=== PATIENT | male | born 1970 | race Caucasian/White ===

== ENCOUNTER → 2021-02-20 00:04 | Outpatient (CLI) | payer OTHER, SELFPAY ==
[2021-02-20 19:57] LABS: SARS-CoV-2 RNA PCR Negative
== END ==
PROVIDERS: PCP Nurse Practitioner Family; Visit Provider Internal Medicine Gastroenterology
DX: Z01.812 Encounter for preprocedural laboratory examination (principal); Z20.822 Contact with and (suspected) exposure to COVID-19
CPT/HCPCS: C9803; U0003; U0005

== ENCOUNTER 2021-02-23 00:24 | Day surgery (SDC) | payer OTHER, SELFPAY ==
[2021-02-23 06:27] VITALS: BP 166/93; PULSE 71; RESP 18; TEMP 36.3; O2SAT 99
[2021-02-23] MEDS: LACTATED RINGERS 1,000 ML 150 ML IV CONT (06:34)
--- NOTE | 2021-02-23 07:23 | WPDANESEPPF ---
Anes - Initial Pre Proc Eval Procedure: Operation Date: 02/23/21 07:30 Proposed Procedures p Screening Colonoscopy - Randy Lim MD Date/Time: 02/23/21 07:23 Surgeon: Randy Lim MD Pre Op Diagnosis: neoplasm screening Patient Data Age: 50 Gender: M Height: 1.78 m Weight: 93.4 kg Last Vital Signs Temp 97.3 F L 02/23/21 06:27 Pulse 71 02/23/21 06:27 Resp 18 02/23/21 06:27 BP 166/93 H 02/23/21 06:27 Pulse Ox 99 02/23/21 06:27 Allergies Allergy/AdvReac Type Severity Reaction Status Date / Time No Known Allergies Allergy Verified 02/23/21 06:25 Home Medications Medication Instructions Recorded Confirmed Type lisinopril 20 mg tablet 20 mg PO DAILY #30 tablet 11/20/20 02/23/21 Rx Patient hx anesthesia problems: none Family hx anesthesia problems: none Results Review: All pre-operative results and documents have been reviewed as part of the pre-operative evaluation. [facility] Past Medical History Medical History (Updated 11/23/20 @ 08:31 by Komal Nicholas) Arthritis Chest pain Chronic back pain Chronic cough Encounter to establish care Hx of cardiac murmur Hypersomnia Hypertension IBS (irritable bowel syndrome) Irritable bowel syndrome with diarrhea Spinal cord stimulator status Tobacco abuse Surgical History Surgical History (Updated 11/20/20 @ 15:01 by Mark Emmanuel CMA) H/O knee surgery x3 History of back surgery x3 History of vasectomy Hx of hand surgery hx broken hand Family History Family History (Updated 11/20/20 @ 14:53 by Mark Emmanuel CMA) Father Alcoholism Hypertension Depression Anxiety Mother Depression Anxiety Sibling Alcoholism Asthma Hypertension Depression Anxiety Grandparent Alcoholism Asthma Hypertension Depression Anxiety Heart disease Cerebrovascular accident Grandparent Alcoholism Hypertension Heart disease Depression Anxiety Other Diabetes mellitus Family history of arthritis Family history of cardiovascular disease Social History Social History (Updated 11/20/20 @ 15:02 by Mark Emmanuel CMA) Smoking packs per day: 1 Smoking cigarettes per day: 20.0 Years smoked: 32 Smoking pack-years: 32.00 Smoking status: Current every day smoker Tobacco type: cigarettes Alcohol intake: current Drinks per week: 70 Alcohol use details: states he drinks about 10 beers a day Substance use: current Substance use type: does not use Living arrangements: with family Spiritual care concerns: No Anes - Eval Final PreProcedure Day of Procedure 02/23/21 07:23 Patient weight: overweight Heart: regular rate and rhythm Lungs: clear to auscultation Airway: Mallampati scale class II Neurological: alert and oriented Last oral intake: >/= 8 hours ASA classification: II Emergent: no Anesthetic plan: proceed Anesthesia type and monitoring: general GIVS and standard monitoring Results Review: All pre-operative results and documents have been reviewed as part of the pre-operative evaluation. Informed Consent: The patient's anesthetic plan and its attendant risks and benefits were discussed with the patient/family/POA. Questions were solicited and answers provided to the satisfaction of the patient/family/POA.
--- NOTE | 2021-02-23 07:29 | PM.HPGS ---
History of Present Illness History of Present Illness Consent: Risks, benefits, and alternatives have been discussed and questions answered. Patient agrees to proceed with procedure. Chief complaint: neoplasm screening Narrative: Mushtaq Steele is a 50 year old male here for first screening colonoscopy Review of Systems Constitutional: Constitutional: Denies headache(s) and Denies weakness Eyes: Eyes: Denies blurry vision ENT: Reports Normal hearing present, Denies headache(s) and Denies neck pain Cardiovascular: Cardiovascular: Denies chest pain and Denies dyspnea Respiratory: Respiratory: Denies dyspnea Gastrointestinal: Gastrointestinal: Reports no additional gastrointestinal complaints Genitourinary: Genitourinary: Denies dysuria Musculoskeletal: Musculoskeletal: Denies neck pain Integumentary/Breasts: Skin/Breast: Denies dry skin Neurologic: Reports Normal hearing present, Denies headache(s) and Denies weakness Psychiatric: Psychiatric: Denies anxiety Endocrine: Endocrine: Denies change in body appearance Hematologic/Lymphatic: Hematologic/Lymphatic: Denies easy bleeding Allergic/Immunologic: Allergic/Immunologic: Denies urticaria PMFSH Past Medical History Medical History (Updated 11/23/20 @ 08:31 by Komal Nicholas) Arthritis Chest pain Chronic back pain Chronic cough Encounter to establish care Hx of cardiac murmur Hypersomnia Hypertension IBS (irritable bowel syndrome) Irritable bowel syndrome with diarrhea Spinal cord stimulator status Tobacco abuse Surgical History Surgical History (Updated 11/20/20 @ 15:01 by Mark Emmanuel [facility]) H/O knee surgery x3 History of back surgery x3 History of vasectomy Hx of hand surgery hx broken hand Family History Family History (Updated 11/20/20 @ 14:53 by Mark Emmanuel [facility]) Father Alcoholism Hypertension Depression Anxiety Mother Depression Anxiety Sibling Alcoholism Asthma Hypertension Depression Anxiety Grandparent Alcoholism Asthma Hypertension Depression Anxiety Heart disease Cerebrovascular accident Grandparent Alcoholism Hypertension Heart disease Depression Anxiety Other Diabetes mellitus Family history of arthritis Family history of cardiovascular disease Social History Social History (Updated 11/20/20 @ 15:02 by Mark Emmanuel [facility]) Smoking packs per day: 1 Smoking cigarettes per day: 20.0 Years smoked: 32 Smoking pack-years: 32.00 Smoking status: Current every day smoker Tobacco type: cigarettes Alcohol intake: current Drinks per week: 70 Alcohol use details: states he drinks about 10 beers a day Substance use: current Substance use type: does not use Living arrangements: with family Spiritual care concerns: No Meds Home Medications and Allergies Home Medications Medication Instructions Recorded Confirmed Type lisinopril 20 mg tablet 20 mg PO DAILY #30 tablet 11/20/20 02/23/21 Rx Allergies Allergy/AdvReac Type Severity Reaction Status Date / Time No Known Allergies Allergy Verified 02/23/21 06:25 Vital Signs Vital Signs - 24 hr 02/23/21 06:27 Temperature 97.3 F L Pulse Rate 71 Respiratory Rate 18 Blood Pressure 166/93 H Pulse Oximetry 99 Exam Const: General: comfortable and no acute distress HENMT: General nose exam: Normal nares present Eyes: General: appearance normal, both eyes and all related structures Neck: Neck: no JVD Resp: Auscultation: clear to auscultation bilaterally Cardio: Rate: regular rate Rhythm: regular rhythm GI: Inspection: non-distended GI Palp: Yes Soft to palpation Skin: General skin exam: normal color Neuro: General: gait normal Speech: normal speech Extrem: General: normal to inspection Psych: Mental Status: mental status grossly normal Assessment and Plan Assessment and plan (1) Colon cancer screening: Code(s): Z12.11 - Encounter for scre
[2021-02-23 07:48] VITALS: BP 124/84; PULSE 66; RESP 17; O2SAT 97
[2021-02-23 07:58] VITALS: BP 128/87; PULSE 63; RESP 17; O2SAT 100
[2021-02-23 08:08] VITALS: BP 136/91; PULSE 60; RESP 15; O2SAT 100
== END 2021-02-23 08:23 | disposition home or self-care (01) ==
PROVIDERS: PCP Nurse Practitioner Family; Visit Provider Internal Medicine Gastroenterology
PROC: 0DJD8ZZ Inspection of Lower Intestinal Tract, Via Natural or Artificial Opening Endoscopic (ICD-10-PCS; CPT 45378; principal; 2021-02-23 07:30)
DX: Z12.11 Encounter for screening for malignant neoplasm of colon (principal); K57.30 Diverticulosis of large intestine without perforation or abscess without bleeding; K64.8 Other hemorrhoids; I10 Essential (primary) hypertension; K58.9 Irritable bowel syndrome, unspecified; F17.210 Nicotine dependence, cigarettes, uncomplicated
CPT/HCPCS: 45378; C9803; J2704; J7120; U0003; U0005

== ENCOUNTER → 2021-03-11 15:12 | Outpatient (CLI) | payer OTHER, SELFPAY ==
--- NOTE | ~2021-03-11 | XR_ITS ---
XR hip BI 2V w AP pelvis 03/11/2021 15:47 Indication: Hip pain Procedure: AP pelvis and 2 views each hip Comparison: No prior studies for comparison. Findings: There is mild symmetric osteoarthritis of the hips. Pelvic rings are intact. Sacral foramen are symmetric. There is a battery pack overlying the right ilium which is partially obscured. No sof t tissue abnormality. Impression: 1: Mild symmetric osteoarthritis of the hips. Reviewed, dictated and finalized at location A. [facility] Impression: 1: Mild symmetric osteoarthritis of the hips.
--- NOTE | ~2021-03-11 | XR_ITS ---
XR knee RT 2V 03/11/2021 15:47 Indication: Right knee pain Procedure: 4 views right knee Comparison: 07/27/2006 Findings: There are surgical changes consistent with prior ACL reconstruction. No acute fracture or t raumatic malalignment. No significant joint space narrowing. No joint effusion. There are vascular ca lcifications. There is normal mineralization. Impression: 1: No acute bone or joint abnormality. Reviewed, dictated and finalized at location A. [facility] Impression: 1: No acute bone or joint abnormality.
--- NOTE | ~2021-03-11 | XR_ITS ---
XR knee LT 2V 03/11/2021 15:47 Indication: Left knee pain Procedure: 4 views left knee Comparison: 11/22/2006 Findings: There are postsurgical changes consistent with ACL reconstruction with interference screws and bone edvin. There are metallic fragments lateral to the distal tibia, unchanged from prior stud y. No acute fracture or traumatic malalignment. No significant alteration of alignment. No significan t joint effusion. Impression: 1: No acute bone or joint abnormality. Reviewed, dictated and finalized at location A. [employer] Impression: 1: No acute bone or joint abnormality.
== END ==
PROVIDERS: PCP Family Medicine; Visit Provider Nurse Practitioner Family
DX: M25.561 Pain in right knee (principal); M25.562 Pain in left knee; M16.0 Bilateral primary osteoarthritis of hip
CPT/HCPCS: 73521; 73560

== ENCOUNTER 2022-09-07 15:55 | Outpatient (CLI) | payer OTHER, SELFPAY ==
--- NOTE | 2022-09-07 11:00 | NEURO_ITS ---
Impression: # Complains of numbness in right hand in certain positions. Having right shoulder surgery. # Subtle evolving right Carpal Tunnel Syndrome. # No ulnar neuropathy. # Normal needle/EMG exam of proximal and distal muscles. # Clinical correlation recommended. Nerve Conduction Studies Anti Sensory Summary Table Stim Site NR Peak (ms) P-T Amp (?V) Site1 Site2 Delta-P (ms) Dist (cm) Rony (m/s) Right Median Anti Sensory (2-3nd Digit) Wrist 3.3 40.8 Wrist 2-3nd Digit 3.3 14.0 42 Wrist 3.1 40.8 Wrist 2-3nd Digit 3.3 14.0 42 Right Radial Anti Sensory (Base 1st Digit) Wrist 2.1 28.3 Wrist Base 1st Digit 2.1 0.0 Right Ulnar Anti Sensory (5th Digit) Wrist 2.7 42.7 Wrist 5th Digit 2.7 14.0 52 Motor Summary Table Stim Site NR Onset (ms) O-P Amp (mV) Site1 Site2 Delta-0 (ms) Dist (cm) Rony (m/s) Right Median Motor (Abd Poll Brev) Wrist 3.7 3.5 Elbow Wrist 5.6 30.0 54 Elbow 9.3 4.0 Right Ulnar Motor (Abd Dig Minimi) Wrist 2.5 8.8 A Elbow Wrist 5.8 30.0 52 A Elbow 8.3 7.8 F Wave Studies NR F-Lat (ms) L-R F-Lat (ms) Right Median (Mrkrs) (Abd Poll Brev) 29.71 Right Ulnar (Mrkrs) (Abd Dig Min) 30.20 EMG Side Muscle Nerve Root Ins Act Fibs Amp Dur Recrt Comment Right 1stDorInt Ulnar C8-T1 Nml Nml Nml Nml Nml Right Ext Indicis Radial (Post Int) C7-8 Nml Nml Nml Nml Nml Right Ext Digitorum Radial (Post Int) C7-8 Nml Nml Nml Nml Nml Right BrachioRad Radial C5-6 Nml Nml Nml Nml Nml Right PronatorTeres Median C6-7 Nml Nml Nml Nml Nml Right Abd Poll Brev Median C8-T1 Nml Nml Nml Nml Nml Right ABD Dig Min Ulnar C8-T1 Nml Nml Nml Nml Nml Right Biceps Musculocut C5-6 Nml Nml Nml Nml Nml Right Triceps Radial C6-7-8 Nml Nml Nml Nml Nml Right Deltoid Axillary C5-6 Nml Nml Nml Nml Nml MTDD
--- NOTE | 2022-09-08 07:17 | PCNEURO ---
Paper documentation exists on this patient due to [employer] downtime on 09/07/22 from to 00:30-19:30 .
== END 2022-09-07 15:56 | disposition home or self-care (01) ==
LOC: ANHNEURO 15:56
PROVIDERS: PCP Nurse Practitioner Family; Visit Provider Orthopaedic Surgery
DX: M79.641 Pain in right hand (principal); G56.01 Carpal tunnel syndrome, right upper limb
CPT/HCPCS: 95886; 95909

== ENCOUNTER 2022-09-19 11:28 | Outpatient (CLI) | payer OTHER, SELFPAY ==
--- NOTE | 2022-09-19 11:45 | ECG_ITS ---
Measurements Intervals [place] Rate: 68 P: 61 OK: 134 QRS: 54 QRSD: 97 T: 8 QT: 395 QTc: 423 Interpretive Statements SINUS RHYTHM NO PREVIOUS ECG AVAILABLE FOR COMPARISON Electronically Signed On 09-20-2022 13:04:07 CDT by Mary Moreland M.D.
== END 2022-09-19 11:29 | disposition home or self-care (01) ==
PROVIDERS: PCP Nurse Practitioner Family; Visit Provider Orthopaedic Surgery
DX: Z72.0 Tobacco use (principal); Z01.818 Encounter for other preprocedural examination
CPT/HCPCS: 93005

== ENCOUNTER 2022-09-21 01:49 | Day surgery (SDC) | payer OTHER, SELFPAY ==
--- NOTE | 2022-09-15 14:32 | PM.IMHP ---
H&P: HPI History of Present Illness Date/Time: 09/15/22 14:32 Chief Complaint: The patient is a 52-year-old male who sees Dr. Fernandes regarding his right shoulder. The patient has a chronic ongoing history of pain localized to the right shoulder particularly with overhead motion or trying to do anything heavy repetitive. His aching and pain that radiates into the upper arm worse with activity some early by rest. Despite cortisone therapy and anti-inflammatories if symptoms continue. The patient also has a mass over the deltoid region MRI scan evaluation revealed multiple findings, patient has impingement 2 to AC joint hypertrophy, he has AC joint arthrosis partial thickness supraspinatus articular undersurface tear at the insertion, partial intrasubstance tear of the subscapularis tendon, possible anterior partial infraspinatus tendon tear at the musculotendinous junction as well. 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 At this point the patient has failed conservative measures including cortisone therapy and anti-inflammatories for his right shoulder rotator cuff tendinitis and impingement type pain he has discussed further treatment options he would like to proceed with surgical intervention. He would also like the lipoma mass excision done at the same time Dr. Fernandes has agreed to proceed after discussing risks benefits limitations alternatives to surgery in great detail with the patient. Review of Systems Review of Systems: Ten point review of systems otherwise negative PMFSH Past Medical History Medical History Arthritis Bilateral hip pain Bilateral knee pain Bilateral shoulder pain BMI 29.0-29.9,adult BMI 30.0-30.9,adult Chest pain Chronic back pain Chronic cough Chronic right shoulder pain Encounter to establish care Hx of cardiac murmur Hypersomnia Hypertension IBS (irritable bowel syndrome) Irritable bowel syndrome with diarrhea Kidney stones Mixed hyperlipidemia Spinal cord stimulator status Tobacco abuse Surgical History Surgical History H/O knee surgery x3 History of back surgery x3 History of vasectomy Hx of hand surgery hx broken hand Family History Family History Father Alcoholism Hypertension Depression Anxiety Mother Depression Anxiety Sibling Alcoholism Asthma Hypertension Depression Anxiety Grandparent Alcoholism Asthma Hypertension Depression Anxiety Heart disease Cerebrovascular accident Grandparent Alcoholism Hypertension Heart disease Depression Anxiety Other Diabetes mellitus Family history of arthritis Family history of cardiovascular disease Social History Social History Smoking packs per day: 1 Smoking cigarettes per day: 20.0 Years smoked: 32 Smoking pack-years: 32.00 Smoking status: Current every day smoker Tobacco type: cigarettes Alcohol intake: current Drinks per week: 70 Alcohol use details: states he drinks about 10 beers a day Substance use: never Substance use type: does not use Living arrangements: with family Spiritual care concerns: No Meds Home Medications and Allergies Home Medications Medication Instructions Recorded Confirmed Type lisinopril 20 mg tablet 10 mg PO DAILY #15 tabs 03/05/21 09/16/21 Rx meloxicam 15 mg tablet 15 mg PO DAILY #30 tabs 03/05/21 09/16/21 Rx metoprolol succinate 25 mg 12.5 mg PO DAILY #15 tabs 03/05/21 09/16/21 Rx tablet,extended release 24 hr tamsulosin 0.4 mg capsule 0.4 mg PO QHS PRN pain #30 caps 09/16/21 09/16/21 Rx Allergies Allergy/AdvReac Type Severity Reaction Status Date / Time No Known All
[2022-09-16 13:58] VITALS: BMI 28.5
--- NOTE | 2022-09-16 14:05 | PC.NURSE ---
Report to the Outpatient Waiting Room, entrance under the green pavilion located off [facility], at time 0800_ on date _09/21/22_. Planned Procedure Time: _1000_. Time changes happen often and if your time is changed the preop area will call you the afternoon before. - You and your visitor will be asked to self-screen and do not enter if you have any COVID symptoms. - A mask is optional within the hospital at this time. Patients may have clear liquids (water, carbonated beverages, clear teas, apple juice) until 3 hours prior to surgery with a maximum of 20 ounces. - No food from midnight until time of surgery - Infants may have breast milk until 4 hours before surgery, formula 6 hours prior to surgery. - Children will be allowed to drink immediately following surgery. If applicable, please bring a bottle or sippy cup to assist with drinking. Juice, water, soda, and popsicles are readily available. For infants on formula, please bring formula the day of surgery. Pacifiers are allowed. Take the following medications with a SIP of water the morning of surgery: NONE DO NOT STOP ANY OF YOUR OTHER PRESCRIPTION MEDICATIONS PRIOR TO SURGERY ?EXCEPT THE FOLLOWING Medications to discontinue per physician MELOXICAM INSTRUCTIONS PER DR. HONEYCUTT Date to take last dose Please no make-up, nail dutch, hairspray, perfume, deodorant, or body powder the day of surgery. No jewelry (including any body piercings) or valuables the day of surgery, leave them at home. Please take a shower or bath the night before, or the morning of, surgery with an antibacterial soap. Wear comfortable, loose fitting clothing. Children are encouraged to wear pajamas. - Jewelry must be removed prior to entering the operating room. Rings and piercings that are not removed may be cut off. - The hospital will not accept responsibility for valuables. - Please leave all valuables, including medications, at home the day of surgery. If you are going home after surgery, a licensed locomotive driver must drive you home. - NO public transportation without another adult if you receive anesthesia. - We recommend that an adult stay with you for 24 hours following discharge. - We also recommend that you do not drive, make important decision, drink alcoholic beverages, or take any drugs that were not prescribed by your health care provider for at least 24 hours after your discharge time. For Pediatric surgeries, we recommend two adults accompany the child home. Follow any additional instructions given to you from your surgeon. If you or anyone in your household have experienced Covid symptoms in the past week, please notify your surgeon or the nurse liaison at the phone number below for possible testing. Telephone instructions given to _PATIENT_and asked if any additional questions and then verbalized understanding. Patient advised to call surgeon office or pre surgery nurse liaison [phone] if any additional questions.
[2022-09-21] VITALS (7 sets, daily range): BP systolic 129–165; BP diastolic 73–95; PULSE 61–82; RESP 16–20; TEMP 36.3–36.9; O2SAT 98–100
[2022-09-21] MEDS: LACTATED RINGERS 1,000 ML 30 ML IV CONT ×2 (08:29→11:53)
[2022-09-21] MEDS: ACETAMINOPHEN 500 MG TABLET 1000 MG PO (08:30)
[2022-09-21] MEDS: KETOROLAC 15 MG/ML VIAL (*BKC) IV PUSH (08:30)
--- NOTE | 2022-09-21 09:08 | WPDANESEPPF ---
Anes - Initial Pre Proc Eval Procedure: Operation Date: 09/21/22 10:00 Proposed Procedures p Right Shoulder Arthroscopy, Debridement of Rotator Cuff, Distal Clavicle Excision of Mass Right Shoulder, Proceed as Indicated - Ulises Fernandes MD Date/Time: 09/21/22 09:08 Surgeon: Ulises Fernandes MD Pre Op Diagnosis: chronic impingement, acl orthosis, mass rt shoulde Patient Data Age: 52 Gender: M Height: 1.8 m Weight: 90 kg Last Vital Signs Temp 36.9 C 09/21/22 08:16 Pulse 62 09/21/22 08:16 Resp 18 09/21/22 08:16 BP 145/95 H 09/21/22 08:16 Pulse Ox 99 09/21/22 08:16 O2 Del Method Room Air 09/21/22 08:16 Allergies Allergy/AdvReac Type Severity Reaction Status Date / Time No Known Allergies Allergy Verified 09/21/22 08:14 Home Medications Medication Instructions Recorded Confirmed Type meloxicam 15 mg tablet 15 mg PO DAILY #30 tabs 03/05/21 09/21/22 Rx Patient hx anesthesia problems: none Family hx anesthesia problems: none Results Review: All pre-operative results and documents have been reviewed as part of the pre-operative evaluation. PENDING SALE TO [facility] Past Medical History Medical History Arthritis Bilateral hip pain Bilateral knee pain Bilateral shoulder pain BMI 29.0-29.9,adult BMI 30.0-30.9,adult Chest pain Chronic back pain Chronic cough Chronic right shoulder pain Encounter to establish care Hx of cardiac murmur Hypersomnia Hypertension IBS (irritable bowel syndrome) Irritable bowel syndrome with diarrhea Kidney stones Mixed hyperlipidemia Spinal cord stimulator status Tobacco abuse Surgical History Surgical History H/O knee surgery x3 History of back surgery x3 History of vasectomy Hx of hand surgery hx broken hand Family History Family History Father Alcoholism Hypertension Depression Anxiety Mother Depression Anxiety Sibling Alcoholism Asthma Hypertension Depression Anxiety Grandparent Alcoholism Asthma Hypertension Depression Anxiety Heart disease Cerebrovascular accident Grandparent Alcoholism Hypertension Heart disease Depression Anxiety Other Diabetes mellitus Family history of arthritis Family history of cardiovascular disease Social History Social History Smoking packs per day: 1 Smoking cigarettes per day: 20.0 Years smoked: 34 Smoking pack-years: 34.00 Smoking status: Current every day smoker Tobacco type: cigarettes Alcohol intake: current Drinks per week: 65 Alcohol use details: states he drinks about 10 beers a day Substance use: former Substance use type: marijuana Other substance usage details: 02/2022 Living arrangements: with family Spiritual care concerns: No Anes - Eval Final PreProcedure Day of Procedure 09/21/22 09:08 Patient weight: overweight Heart: regular rate and rhythm Lungs: clear to auscultation Airway: Mallampati scale class II Neurological: alert and oriented Last oral intake: >/= 8 hours ASA classification: III Emergent: no Anesthetic plan: proceed Anesthesia type and monitoring: general ETT and standard monitoring Results Review: All pre-operative results and documents have been reviewed as part of the pre-operative evaluation. Informed Consent: The patient's anesthetic plan and its attendant risks and benefits were discussed with the patient/family/POA. Questions were solicited and answers provided to the satisfaction of the patient/family/POA.
--- NOTE | 2022-09-21 09:20 | WPDHPUPDATE1 ---
History and Physical Update Update Date/Time: 09/21/22 09:20 History and Physical has been reviewed, including an updated exam of the patient. There are NO changes in the patient's condition. Risks, benefits, and alternatives have been discussed and questions answered. Patient agrees to proceed with procedure.
--- NOTE | 2022-09-21 09:22 | WPDANESPNB ---
Anes - Peripheral Nerve Block Date/Time: 09/21/22 09:22 I have discussed with the patient/family/POA the placement of a peripheral nerve block for post-operative pain management, including associated risks, benefits, complications, and side effects. Alternative methods of post-operative analgesia were detailed. Questions were solicited and answers provided to the satisfaction of the patient/family/POA. Time-Out: A pre-procedural Time-Out was completed immediately before starting the procedure and confirmed: Patient Identification, Site, Procedure, Patient Position and the Availability of Requisite Equipment. Clinical Indications: Acute post-operative pain management requested by the operative surgeon. Nerve Block Insertion Note Anes-nerve block: interscalene right Patient position: supine Skin prep: chlorhexidine Needle: 22 gauge, stimulating, insulated echogenic needle. Needle length: 50 mm Technique: ultrasound Injectate: bupivacaine 0.5% with epi 5 mcg/ml (30cc- no epi) Observations: tolerated well Complications: none Procedure start time:: 955 Procedure end time:: 1000
[2022-09-21] MEDS: ceFAZolin 2 GM/D5W 50 ML 2 GM/50 ML BAG IVPB (10:15)
--- NOTE | 2022-09-21 11:23 | W.PM.PROC2 ---
Procedure Note - Detailed Date of Procedure 09/21/22 Pre-op Diagnosis 1) Chronic impingement 2) Acromioclavicular Arthrosis 3) Mass rt shoulder Post-op Diagnosis Same Procedure Performed 1) Arthroscopic debridement and Acromioplasty 2) Distal Clavicle Excision 3) Excision Mass Surgeon Ulises Fernandes MD [employer] Operator Teodoro Saez Anesthesia General Description of Procedure Patient brought to the operative 7. A general anesthetic was administered placed in the beach chair position the left shoulder exposed.? After sterile prep and drape standard posterior and lateral portals were used for arthroscopy. The joint itself looked reasonably good the biceps tendon was intact.? He had fraying of the rotator cuff area in the supraspinatus tear region. This was gently debrided.? The subacromial space had an intense bursa, this was debrided with a shaver and acromioplasty performed arthroscopically.? He was quite tight initially. I then proceeded to open the shoulder. A longitudinal incision made from the AC joint distalward over the shoulder.? Dissection carried down to the fascia. The fascia overlying the acromioclavicular joint was split. The AC joint found and a distal clavicle excision performed removing 3 to 4 millimeters of bone.? The edges beveled.? The deltoid was then split from the tip of the acromion. The remainder of the bursa was debrided.? The rotator cuff showed minimal fraying in the supraspinatous interval. This was minimally debrided.? At this point the deltoid was repaired to itself,the acromion and the trapezius #2 Ethibond. The skin was closed with 2-0 Vicryl and edvin.? The mass in the arm was then addressed. A longituidanl incision was made and carried down to what appeared to be a lipome. The mass was gently expressed and then released from the surrounding muscle, staying well away from any neurovascular structures. A sterile dressing applied patient tolerated well left the operating room satisfactory condition. Estimated Blood Loss 50 Drains No Packing No Pathology None sent Complications No immediate complications Condition Stable Disposition PACU
[2022-09-21] MEDS: LIDO 1%/EPINEPHRINE 1:100,000 50 ML VIAL 20 ML INFILTRATE (11:25)
--- NOTE | 2022-09-21 12:16 | SUR.PHASEI ---
1215: Simple mask removed.
--- NOTE | 2022-09-21 13:36 | SUR.PHASEII ---
ASSISTED PATIENT GETTING DRESSED.
== END 2022-09-21 13:37 | disposition home or self-care (01) ==
PROVIDERS: PCP Nurse Practitioner Family; Visit Provider Orthopaedic Surgery
PROC: (CPT 29805; principal; 2022-09-21 10:00)
DX: M75.41 Impingement syndrome of right shoulder (principal); M19.011 Primary osteoarthritis, right shoulder; M75.101 Unspecified rotator cuff tear or rupture of right shoulder, not specified as traumatic; D17.21 Benign lipomatous neoplasm of skin and subcutaneous tissue of right arm; G89.18 Other acute postprocedural pain; I10 Essential (primary) hypertension; E78.2 Mixed hyperlipidemia; F17.210 Nicotine dependence, cigarettes, uncomplicated
CPT/HCPCS: 23120; 64415; 24071; 88304; 93005; A9270; J0330; J0690; J1100; J1170; J1885; J2250; J2704; J3010; J7120